=== PATIENT | male | born 1985 ===

== ENCOUNTER 2017-12-23 22:48 | Emergency (ER) | payer OTHER ==
[2017-12-23 22:58] VITALS: BP 144/93; PULSE 94; TEMP 98.9; O2SAT 99
--- NOTE | 2017-12-24 01:38 | ED PDOC ---
HPI: Psych/Substance Abuse Time Seen by Provider: 12/24/17 00:28 Chief Complaint (Nursing): Shortness Of Breath Chief Complaint (Provider): possible anxiety History Per: Patient History/Exam Limitations: no limitations Additional Complaint(s): 32 y/o male presents for evaluation of possible anxiety attack. Patient states he was started on anti-depressant/anti-anxiety medication one year ago for anxiety, stopped it one month ago because he felt that he didn't need it anymore. Patient states tonight after work he suddenly felt short of breath and "panicky", which caused him to start shaking, as if he couldn't get a good breath in. Patient states he has had similar episodes in past, one year ago, before he was started on medication. Patient states before being started on medication he had full cardiac, neurology, ENT, and gastroenterology work-ups which were all normal. Patient states upon arrival to ED and after resting in exam room for a while symptoms have resolved and he is feeling better. Denies fever, headache, dizziness, extremity numbness/weakness, chest pain, shortness of breath, palpitations, abdominal pain, leg pain/swelling, recent travel. Past Medical History Reviewed: Historical Data, Nursing Documentation, Vital Signs Vital Signs: Last Vital Signs Temp 98.9 F 12/23/17 22:55 Pulse 94 H 12/23/17 22:55 Resp 16 12/23/17 22:55 BP 144/93 H 12/23/17 22:55 Pulse Ox 99 12/23/17 22:55 - Medical History PMH: Anxiety - Surgical History Surgical History: No Surg Hx - Family History Family History: States: No Known Family Hx - Living Arrangements Living Arrangements: With Family - Social History Ex-Smoker (has not smoked in the last 12 months): No Alcohol: Social Drugs: Denies - Allergies Allergies/Adverse Reactions: Allergies Allergy/AdvReac Type Severity Reaction Status Date / Time No Known Allergies Allergy Verified 12/23/17 22:55 Review of Systems ROS Statement: Except As Marked, All Systems Reviewed And Found Negative Respiratory: Positive for: Shortness of Breath Psych: Positive for: Anxiety Physical Exam - Reviewed Nursing Documentation Reviewed: Yes Vital Signs Reviewed: Yes - Physical Exam Appears: Positive for: Well, Non-toxic, No Acute Distress Head Exam: Positive for: ATRAUMATIC, NORMAL INSPECTION, NORMOCEPHALIC Skin: Positive for: Normal Color Eye Exam: Positive for: Normal appearance ENT: Positive for: Normal ENT Inspection Cardiovascular/Chest: Positive for: Regular Rate, Rhythm Respiratory: Positive for: Normal Breath Sounds Gastrointestinal/Abdominal: Positive for: Normal Exam Back: Positive for: Normal Inspection Extremity: Positive for: Normal ROM Neurologic/Psych: Positive for: Alert, Oriented. Negative for: Motor/Sensory Deficits - ECG ECG: Positive for: Viewed By Me (reviewed by ED attending) ECG Rhythm: Positive for: Sinus Rhythm O2 Sat by Pulse Oximetry: 99 - Progress ED Course And Treament: Patient states he is feeling better, currently no symptoms, and would like to be discharged. Patient has appointment to see a Neuro-psychologist today. Advised patient to follow up as scheduled. Return precautions given. Disposition - Clinical Impression Clinical Impression: Anxiety attack - Patient ED Disposition Is Patient to be Admitted: No Counseled Patient/Family Regarding: Studies Performed, Diagnosis, Need For Followup - Disposition Disposition: Routine/Home Disposition Time: 01:39 Condition: IMPROVED Instructions: Anxiety (ED)
[2017-12-24 06:29] VITALS: RESP 18
== END 2017-12-24 00:45 | disposition home or self-care (01) ==
LOC: H.ER 22:48
DX: F41.0 Panic disorder [episodic paroxysmal anxiety] (principal)